=== PATIENT | female | born 1950 | race Caucasian/White ===

== ENCOUNTER → 2016-12-31 | Outpatient (CLI) | payer MEDICARE, OTHER ==
[~2016-12-31] MED LIST: ASPIRIN325 MG PO; CALCIUM 600 +1 EACH PO; CLOPIDOGREL75 MG PO; COLACE 100MG C100 MG PO; CRESTOR20 MG PO; FLONASE 0.05% N16 GM; FORTEO 250250 MCG/ML SC; ISOSORBIDE MONO60 MG PO; LEXAPRO10 MG PO; NEURONTIN 300300 MG PO; NORCO 7.5-3251 EACH PO; OMEPRAZOLE20 MG PO; PROAIR HFA8.5 GM INH; SPIRIVA HANDIH18 MCG INH; TOPROL XL50 MG PO; VITAMIN D350000 UNIT PO; ZANAFLEX4 M1 PO; ZANAFLEX4 MG PO; ZYLOPRIM 100 M100 MG PO
== END ==
LOC: NM 14:30
DX: R10.84 Generalized abdominal pain (principal); M54.9 Dorsalgia, unspecified; K21.9 Gastro-esophageal reflux disease without esophagitis; R93.2 Abnormal findings on diagnostic imaging of liver and biliary tract
CPT/HCPCS: 78227; A9537; J2805

== ENCOUNTER → 2017-03-03 | Day surgery (SDC) | payer MEDICARE, OTHER | END | disposition home or self-care (01) | LOC: OR 06:47 | PROVIDERS: Surgery | PROC: 0FT44ZZ Resection of Gallbladder, Percutaneous Endoscopic Approach (ICD-10-PCS; principal; 2017-03-03 09:50) | DX: K81.1 Chronic cholecystitis (principal); M19.90 Unspecified osteoarthritis, unspecified site; I10 Essential (primary) hypertension; I25.10 Atherosclerotic heart disease of native coronary artery without angina pectoris; J44.9 Chronic obstructive pulmonary disease, unspecified; K21.9 Gastro-esophageal reflux disease without esophagitis; M10.9 Gout, unspecified; E78.00 Pure hypercholesterolemia, unspecified; E03.9 Hypothyroidism, unspecified; M54.16 Radiculopathy, lumbar region; M81.0 Age-related osteoporosis without current pathological fracture; I27.2 Other secondary pulmonary hypertension; G47.30 Sleep apnea, unspecified; E53.8 Deficiency of other specified B group vitamins; E55.9 Vitamin D deficiency, unspecified; G89.29 Other chronic pain; F17.210 Nicotine dependence, cigarettes, uncomplicated; Z86.010 Personal history of colon polyps; Z87.19 Personal history of other diseases of the digestive system; Z79.82 Long term (current) use of aspirin; Z79.899 Other long term (current) drug therapy; Z86.73 Personal history of transient ischemic attack (TIA), and cerebral infarction without residual deficits; Z90.710 Acquired absence of both cervix and uterus; Z90.49 Acquired absence of other specified parts of digestive tract | CPT/HCPCS: J0690; J1200; J2250; J2405; J2710; J3010; J7030; J7120 ==

== ENCOUNTER → 2017-04-01 | Outpatient (CLI) | payer MEDICARE, OTHER | LOC: HEART 5 03-30 08:45 | DX: Z00.00 Encounter for general adult medical examination without abnormal findings (principal); E78.00 Pure hypercholesterolemia, unspecified; I25.10 Atherosclerotic heart disease of native coronary artery without angina pectoris; R06.00 Dyspnea, unspecified; R94.8 Abnormal results of function studies of other organs and systems | CPT/HCPCS: 78452; A9502; J2785 ==

== ENCOUNTER → 2021-03-21 | Day surgery (SDC) | payer OTHER ==
[~2021-03-21] MED LIST changes: +COZAAR100 MG PO; +GABAPENTIN600 MG PO; +HYDROCODON-ACE1 EAC4 PO; +VENTOLIN HFA 66.7 GM INH; +VITAMIN B 12 PO; +ZYRTEC10 MG PO
== END | disposition home or self-care (01) ==
LOC: OR 06:57
PROVIDERS: Surgery
PROC: 0DBF8ZX Excision of Right Large Intestine, Via Natural or Artificial Opening Endoscopic, Diagnostic (ICD-10-PCS; principal; 2021-03-21 09:30)
DX: Z12.11 Encounter for screening for malignant neoplasm of colon (principal); D12.2 Benign neoplasm of ascending colon; K58.9 Irritable bowel syndrome, unspecified; K21.9 Gastro-esophageal reflux disease without esophagitis; I10 Essential (primary) hypertension; I25.10 Atherosclerotic heart disease of native coronary artery without angina pectoris; F17.210 Nicotine dependence, cigarettes, uncomplicated; G89.29 Other chronic pain; M54.9 Dorsalgia, unspecified; J44.9 Chronic obstructive pulmonary disease, unspecified; E78.5 Hyperlipidemia, unspecified; E78.00 Pure hypercholesterolemia, unspecified; E03.9 Hypothyroidism, unspecified; G47.00 Insomnia, unspecified; M81.0 Age-related osteoporosis without current pathological fracture; Z20.822 Contact with and (suspected) exposure to COVID-19; Z95.5 Presence of coronary angioplasty implant and graft; Z90.49 Acquired absence of other specified parts of digestive tract; Z79.82 Long term (current) use of aspirin; Z79.02 Long term (current) use of antithrombotics/antiplatelets; Z79.899 Other long term (current) drug therapy; Z86.010 Personal history of colon polyps
CPT/HCPCS: J2704; J7030

== ENCOUNTER 2021-04-29 19:23 | Emergency (ER) | payer OTHER ==
[~2021-04-29 19:23] MED LIST changes: -HYDROCODON-ACE1 EAC4 PO
[2021-04-29] MEDS ORDERED: HYDROCODON-ACE1 EAC4 PO (20:11)
== END 2021-04-29 20:22 | disposition home or self-care (01) ==
LOC: ER1 19:23
DX: S92.312A Displaced fracture of first metatarsal bone, left foot, initial encounter for closed fracture (principal); W11.XXXA Fall on and from ladder, initial encounter
CPT/HCPCS: 73630; 99283

== ENCOUNTER → 2021-07-24 | Outpatient (CLI) | payer OTHER ==
[~2021-07-24] MED LIST changes: +HYDROCODON-ACE1 EAC4 PO
== END ==
LOC: EMI 08:52
DX: H49.22 Sixth [abducent] nerve palsy, left eye (principal); I67.82 Cerebral ischemia; R93.0 Abnormal findings on diagnostic imaging of skull and head, not elsewhere classified
CPT/HCPCS: 70543; 70553; A9577

== ENCOUNTER → 2022-04-30 | Outpatient (CLI) | payer MEDICARE, OTHER ==
[~2022-04-30] VITALS: Ht 160 cm; Wt 61.7 kg
== END ==
LOC: OPSV 04-16 14:00
DX: M81.0 Age-related osteoporosis without current pathological fracture (principal)
CPT/HCPCS: 96372